=== PATIENT | male | born 1970 | race Caucasian/White ===

== ENCOUNTER 2018-02-16 10:54 | Outpatient (CLI) | payer MEDICAID, SELFPAY ==
--- NOTE | 2018-02-16 11:30 | DI.RAD_ITS ---
SYMPTOMS/DIAGNOSIS: PAIN AT THE BASE OF RT TOE RIGHT FOOT: There is a plantar calcaneal spur. There are minimal degenerative changes of the first MTP joint. There is slight spurring. There is no joint space narrowing , sclerosis or subchondral cyst. There is no hallux valgus. IMPRESSION: Heel spur. Minimal first MTP joint degenerative changes.
== END 2018-02-16 11:14 ==
PROVIDERS: PCP Nurse Practitioner Family; Visit Provider Family Medicine
DX: M79.674 Pain in right toe(s) (principal); M19.071 Primary osteoarthritis, right ankle and foot; M77.31 Calcaneal spur, right foot
CPT/HCPCS: 73630